=== PATIENT | female | born 1970 | race Caucasian/White ===

== ENCOUNTER 2021-12-16 11:28 | Outpatient (CLI) | payer BC, SELFPAY ==
--- NOTE | 2021-12-16 11:30 | CRLHL7_ITS ---
For Patients: As a result of the Century Cures Act, medical imaging exams and procedure reports are released immediately into your electronic medical record. You may view this report before your referring provider. If you have questions, please contact your health care provider. BILATERAL SCREENING MAMMOGRAM WITH COMPUTER-AIDED DETECTION AND TOMOSYNTHESIS TECHNIQUE: CC and MLO views were obtained. These mammographic images have been obtained using full-field digital technique. These mammographic images were interpreted with the benefit of computer-aided detection. Breast Tomosynthesis was used in this interpretation. COMPARISON FILM: 10/23/20, 09/13/19, 09/05/18. FINDINGS: The breasts are heterogeneously dense, which may obscure small masses IMPRESSION: There is no radiographic evidence for malignancy. ASSESSMENT: BI-RADS Category 2: Benign RECOMMENDATION: Routine screening mammogram in 1 year. A lay language report of this examination will be provided to the patient. Hemal Ramires M.D. Diagnostic Radiologist [email or web address] HARRIET/Dictated by: Hemal Ramires MD @ 12/17/2021 8:57:00 AM (Electronically Signed)
== END 2021-12-16 11:29 | disposition home or self-care (01) ==
LOC: MAMMO 11:29
PROVIDERS: Visit Provider Obstetrics & Gynecology
DX: Z12.31 Encounter for screening mammogram for malignant neoplasm of breast (principal); R92.2 Inconclusive mammogram
CPT/HCPCS: 77063; 77067

== ENCOUNTER 2022-03-02 07:58 | Outpatient (CLI) | payer BC, SELFPAY ==
[2022-03-02 10:43] LABS: Chloride* 108 mmol/L (96-114)
[2022-03-02 10:44] LABS: Albumin* 4.3 g/dL (3.3-5.0); Iron* 104 ug/dL (37-170); Sodium* 140 mmol/L (135-149)
[2022-03-02 10:45] LABS: Potassium* 4.4 mmol/L (3.6-5.1)
[2022-03-02 10:47] LABS: Alanine Aminotransferase* 16 U/L (4-35); Alkaline Phosphatase* 65 U/L (40-150); Aspartate Amino Transferase* 20 U/L (12-35); Bilirubin Total* 0.5 mg/dL (0.1-1.5); Blood Urea Nitrogen* 13 mg/dL (7-30); Carbon Dioxide* 25 mmol/L (20-32); Cholesterol* 191 mg/dL (90-199); Creatinine* 0.6 mg/dL (0.5-1.5); Estimated Glomerular Filt Rate 108 ml/min; Glucose* 87 mg/dL (60-115); Total Protein* 6.9 g/dL (6.0-8.3); Triglycerides* 88 mg/dL (40-149)
[2022-03-02 10:48] LABS: HDL Cholesterol* 75 mg/dL (>=50); LDL Cholesterol Calculated 98 mg/dL (<100)
[2022-03-02 10:53] LABS: Percent Iron Saturation 32 % (20-50); Total Iron Binding Capacity 320 ug/dL (265-497)
[2022-03-03 23:38] LABS: Vitamin D, 1,25-Dihydroxy 42.4 pg/mL (19.9-79.3)
== END 2022-03-02 07:59 | disposition home or self-care (01) ==
PROVIDERS: Visit Provider Obstetrics & Gynecology
DX: Z00.00 Encounter for general adult medical examination without abnormal findings (principal); R23.2 Flushing; G25.81 Restless legs syndrome; Z13.6 Encounter for screening for cardiovascular disorders; Z13.29 Encounter for screening for other suspected endocrine disorder
CPT/HCPCS: 80053; 80061; 82652; 83001; 83540; 83550; 84443

== ENCOUNTER 2023-03-24 08:01 | Outpatient (CLI) | payer OTHER, SELFPAY ==
--- NOTE | 2023-03-24 08:15 | CRLHL7_ITS ---
For Patients: As a result of the Century Cures Act, medical imaging exams and procedure reports are released immediately into your electronic medical record. You may view this report before your referring provider. If you have questions, please contact your health care provider. BILATERAL SCREENING MAMMOGRAM WITH COMPUTER-AIDED DETECTION AND TOMOSYNTHESIS TECHNIQUE: CC and MLO views were obtained. These mammographic images have been obtained using full-field digital technique. These mammographic images were interpreted with the benefit of computer-aided detection. Breast Tomosynthesis was used in this interpretation. COMPARISON FILM: 12/16/21, 10/23/20, 09/13/19. FINDINGS: The breasts are heterogeneously dense, which may obscure small masses IMPRESSION: There is no radiographic evidence for malignancy. ASSESSMENT: BI-RADS Category 2: Benign RECOMMENDATION: Routine screening mammogram in 1 year. A lay language report of this examination will be provided to the patient. Hemal Ramires M.D. Diagnostic Radiologist [email or web address] HARRIET/Dictated by: Hemal Ramires MD @ 03/24/2023 9:51:00 AM (Electronically Signed)
== END 2023-03-24 08:02 | disposition home or self-care (01) ==
LOC: MAMMO 08:02
PROVIDERS: Visit Provider Obstetrics & Gynecology
DX: Z12.31 Encounter for screening mammogram for malignant neoplasm of breast (principal); R92.2 Inconclusive mammogram
CPT/HCPCS: 77063; 77067

== ENCOUNTER 2023-05-17 07:02 | Outpatient (CLI) | payer OTHER, SELFPAY ==
--- NOTE | 2023-05-17 07:15 | US_ITS ---
Final Report Patient: KEVIN ALEMAN Facility:?[facility] Patient ID:?[id number] Site Patient ID:?[id number]. Site :?[id number] Study:?US Pelvis PELVIS TA & TV-05/17/2023 9:08:14 AM Ordering Physician:?ALEX ROSARIO Final Report: INDICATION: Autoimmune thyroiditis COMPARISON: 03/08/2011 TECHNIQUE: 2D donahue scale and color Doppler images were acquired of the pelvis using a transabdominal and transvaginal approach. FINDINGS: Uterine echotexture is heterogeneous. section scar noted. Numerous intramural fibroids are present measuring 2.6 x 1.7 x 2.3 cm, 1.6 x 1.1 x 1.5 cm, 1.8 x 1.4 x 2.1 cm and 1.5 x 1.0 x 1.5 cm. Uterus measures 11.2 cm in length by 6.3 cm in AP diameter by 7.9 cm in transverse dimension. The endometrial lining appears normal and measures 4 mm in composite thickness. The right ovary measures 5.4 x 3.3 x 4.4 cm in size and the left ovary measures 4.0 x 2.1 x 2.4 cm. The ovaries demonstrate normal arterial and venous blood flow on color Doppler analysis. There are no suspicious fluid collections within the cul-de-sac. Simple left ovarian cyst measures 2.6 x 1.5 x 1.6 cm. Simple right ovarian cyst measuring 4.1 x 2.6 x 3.3 cm. IMPRESSION: Multiple intramural fibroids. Bilateral ovarian cysts. Dictated by Hemal Ramires MD @ 05/17/2023 9:17:38 AM (Electronic Signature)
== END 2023-05-17 07:03 | disposition home or self-care (01) ==
LOC: US 07:03
PROVIDERS: Visit Provider Obstetrics & Gynecology
DX: E06.3 Autoimmune thyroiditis (principal); D25.9 Leiomyoma of uterus, unspecified; N83.201 Unspecified ovarian cyst, right side; N83.202 Unspecified ovarian cyst, left side; N92.0 Excessive and frequent menstruation with regular cycle; G47.00 Insomnia, unspecified; R23.2 Flushing
CPT/HCPCS: 76830; 76856; 80061; 82306; 83540; 83550; 84439; 84443

== ENCOUNTER 2023-05-17 08:35 | Outpatient (CLI) | payer OTHER, SELFPAY | END 2023-05-17 08:36 | disposition home or self-care (01) | PROVIDERS: Visit Provider Obstetrics & Gynecology | DX: N92.0 Excessive and frequent menstruation with regular cycle (principal) | CPT/HCPCS: 80061; 82306; 83001; 83540; 83550; 84439; 84443 ==

== ENCOUNTER 2024-08-06 13:27 | Outpatient (CLI) | payer OTHER, SELFPAY ==
--- NOTE | 2024-08-06 13:40 | CRLHL7_ITS ---
For Patients: As a result of the Century Cures Act, medical imaging exams and procedure reports are released immediately into your electronic medical record. You may view this report before your referring provider. If you have questions, please contact your health care provider. INDICATION: BILATERAL SCREENING MAMMOGRAM, ASYMPTOMATIC 54 Y/O FEMALE COMPARISON: 03/24/2023, 12/16/2021, 10/23/2020 TECHNIQUE: Digital mammogram in CC and MLO projections including computer-aided detection (CAD) and tomosynthesis. BREAST COMPOSITION: The breasts are heterogeneously dense, which may obscure small masses. FINDINGS: No suspicious findings. ASSESSMENT: BI-RADS 1 Negative RECOMMENDATION: Annual screening mammogram. A lay language report of this examination will be provided to the patient. Dictated by: Hemal Ramires MD @ 08/07/2024 09:53:52 (Electronically Signed)
== END 2024-08-06 13:28 | disposition home or self-care (01) ==
LOC: MAMMO 13:28
PROVIDERS: Visit Provider Obstetrics & Gynecology
DX: Z12.31 Encounter for screening mammogram for malignant neoplasm of breast (principal); R92.333 Mammographic heterogeneous density, bilateral breasts
CPT/HCPCS: 77063; 77067

== ENCOUNTER 2025-01-30 16:08 | Outpatient (CLI) | payer OTHER, SELFPAY ==
[2025-01-30 21:32] LABS: Bacterial Vaginosis* Negative (Negative); Candida glab/krus NOT DETECTED (No Detected)
== END 2025-01-30 16:09 | disposition home or self-care (01) ==
LOC: NFLDREF 16:09
PROVIDERS: Visit Provider Obstetrics & Gynecology
DX: N90.89 Other specified noninflammatory disorders of vulva and perineum (principal)
CPT/HCPCS: 81513; 87481; 87661